=== PATIENT | female | born 1990 | race Two or more races ===

== ENCOUNTER 2017-07-01 11:18 | Emergency (ER) | payer MEDICAID ==
--- NOTE | ~2017-07-01 | ER ---
PATIENT'S NAME: ALEJANDRA WALLIS [facility] AGE: 26 Y [address] ROOM: [place] [id number] LOCATION: [facility] ADMIT DATE: 07/01/2017 ER/Outpatient Report DISCHARGE DATE: 07/01/2017 FAMILY PHYSICIAN: PHYSICIAN, NO ATTENDING PHYSICIAN: Maynor Villasenor Time of Arrival: 1130. Time of Exam: 1150. CHIEF COMPLAINT: Possible allergic reaction to her feet. HISTORY OF PRESENT ILLNESS: The patient states she was visiting her dad in [place] when she walked through a grassy area and that was on Wednesday06/29/2017. Since then, she has had itching and redness of her feet with swelling of the right fifth toe. She states that when she itches her toes, they become tender to touch. She does have a history of plaque psoriasis and has tried Benadryl cream. She states she did call and talk with her screen printing machine operator helper in [place] and is scheduled to see him on Wednesday, but she said that it became much more discomfort and wanted to have her feet checked. She has not felt feverish in any way. ALLERGIES: IBUPROFEN. CURRENT MEDICATIONS: 1. Cosentyx monthly injections. The last being on 06/27/2017. 2. Benadryl itch cream. PAST MEDICAL HISTORY: Chronic plaque psoriasis. PAST SURGERIES: Negative. SOCIAL HISTORY: She denies use of tobacco, drugs, or alcohol. REVIEW OF SYSTEMS: Negative other than those mentioned in the HPI. PHYSICAL EXAMINATION: VITAL SIGNS: She weighed 87.1 kg. Blood pressure was 142/79, pulse of 91, respirations 14, temperature of 97.6 tympanic, O2 saturation was 95% on room air. PATIENT'S NAME: ALEJANDRA WALLIS [facility] AGE: 26 Y [address] ROOM: [place], [place] [address] LOCATION: [facility] ADMIT DATE: 07/01/2017 ER/Outpatient Report DISCHARGE DATE: 07/01/2017 FAMILY PHYSICIAN: PHYSICIAN, NO ATTENDING PHYSICIAN: Maynor Villasenor GENERAL: She is awake, alert, and oriented x4. SKIN: [place], warm, and dry. RESPIRATIONS: Even and nonlabored. Oropharynx is clear. NECK: Supple. No lymphadenopathy. No drooling noted. LUNGS: Lung sounds are clear throughout. HEART: Regular rate and rhythm. EXTREMITIES: The patient has multiple areas on her feet that appear to be bug bites. No open areas are noted. She has strong pedal pulses. Her right fifth toe is slightly edematous but has two areas of induration consistent with bug bites on them. IMPRESSION: Bug bites. PLAN: Home, rest. She can continue the Benadryl cream. She can do oral Benadryl as needed. I did write a prescription for prednisone. She is to follow up with her primary provider or screen printing machine operator helper as planned. She verbalized understanding. SHAYLA DELA CRUZ APRN FOR [facility]/mckay /[id number] d: 07/01/17 2149 t: 07/06/17 0643, OUTPATIENT REPORT
== END 2017-07-01 12:13 | disposition disaster alternative care site (69) ==
LOC: GMED 11:18
DX: S90.464A Insect bite (nonvenomous), right lesser toe(s), initial encounter (principal); Z88.8 Allergy status to other drugs, medicaments and biological substances; Z79.899 Other long term (current) drug therapy; W57.XXXA Bitten or stung by nonvenomous insect and other nonvenomous arthropods, initial encounter; Y92.89 Other specified places as the place of occurrence of the external cause